=== PATIENT | female | born 1985 ===

== ENCOUNTER 2017-05-06 16:25 | Emergency (ER) | payer OTHER ==
--- NOTE | 2017-05-06 19:24 | C.PDOC ---
History Of Present Illness Patient is a 32 year old female who presents to the ED for evaluation of left shoulder pain for the past week and right breast pain since yesterday. Patient reports that her shoulder pain is exacerbated by deep breath and movement. 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 She denies shortness of breath or cough. She denies injury to right breast and denies lumps or discharge. 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) History/Exam Limitations: no limitations Onset/Duration Of Symptoms: Other (1 week) Current Symptoms Are (Timing): Still Present Quality: "Pain" Exacerbating Factors: Movement, Deep Breathing Alleviating Factors: None Past Medical History Reviewed: Historical Data, Nursing Documentation, Vital Signs Vital Signs: Last Vital Signs Temp 98.5 F 05/06/17 20:37 Pulse 70 05/06/17 20:37 Resp 20 05/06/17 20:37 BP 112/70 05/06/17 20:37 Pulse Ox 100 05/06/17 21:43 Family History: States: No Known Family Hx - Social History Hx Tobacco Use: No Hx Alcohol Use: No Hx Substance Use: No - Immunization History Hx Tetanus Toxoid Vaccination: No Hx Influenza Vaccination: No Hx Pneumococcal Vaccination: No Review Of Systems Except As Marked, All Systems Reviewed And Found Negative. Constitutional: Negative for: Fever, Other (heat/cold intolerance) ENT: Negative for: Ear Pain, Throat Pain Cardiovascular: Negative for: Chest Pain Respiratory: Negative for: Cough, Shortness of Breath Gastrointestinal: Negative for: Nausea, Vomiting, Abdominal Pain, Diarrhea Musculoskeletal: Positive for: Shoulder Pain, Other (Breast pain) Skin: Negative for: Rash Neurological: Negative for: Weakness, Numbness Physical Exam - Physical Exam Appears: Well, Non-toxic, No Acute Distress Skin: Normal Color, Warm, Dry Head: Atraumatic, Normacephalic Eye(s): bilateral: Normal Inspection, PERRL, EOMI Nose: Normal Oral Mucosa: Moist Throat: Normal Neck: Normal, Normal ROM, No Midline Cervical Tenderness, Supple Chest: Symmetrical, Other (right breast no discharge, no erythema, no palpable masses, mild tenderness to palpation ) Cardiovascular: Rhythm Regular Respiratory: Normal Breath Sounds Extremity: Normal ROM, Tenderness (left trapezius radiating into left shoulder ) , No Deformity Neurological/Psych: Oriented x3, Normal Speech ED Course And Treatment O2 Sat by Pulse Oximetry: 100 Medical Decision Making Medical Decision Making: Patient with reproducible upper back pain which radiates to her left arm suggestive of cervical radiculopathy. Patient also with subejctive complaints of right breast pain. We suggest follow up with mammography and will provide short trial of anti-inflammatories and muscle relaxers. Disposition - Disposition Referrals: [facility] [Outside] Disposition: HOME/ ROUTINE Disposition Time: 03:15 Condition: GOOD Prescriptions: Cyclobenzaprine [Cyclobenzaprine HCl] 10 mg PO TID #15 tab Naproxen [Naprosyn] 500 mg PO BID #20 tablet Forms: Gen Discharge Inst Latvian, [employer] (Wolof) Print Language: SLOVENIAN - Clinical Impression Clinical Impression: Cervical radiculopathy - Scribe Statement The provider has reviewed the documentation as recorded by the Scribe The provider has reviewed the documentation as recorded by the Scribe (Antonio Celeste) Provider Attestation: All medical record entries made by the Scribe were at my direction and personally dictated by me. I have reviewed the chart and agree that the record accurately reflects my personal performance of the history, physical exam, medical decision making, and the department course for this patient. I have also personally directed, reviewed, and agree with the discharge instructions and disposition.
[2017-05-06 20:38] VITALS: BP 112/70; PULSE 70; RESP 20; TEMP 98.5
[2017-05-06 21:43] VITALS: O2SAT 100
--- NOTE | 2017-05-07 12:21 | CARD ---
APPROVED REPORT EKG Measurement Heart [id number] <Conclusion> Normal sinus rhythm Normal ECG
== END 2017-05-06 20:38 | disposition home or self-care (01) ==
LOC: C.ER 16:25
DX: M54.12 Radiculopathy, cervical region (principal)

== ENCOUNTER 2018-03-08 21:20 | Emergency (ER) | payer OTHER ==
[2018-03-08 21:52] VITALS: BP 118/77; PULSE 84; RESP 18; TEMP 98.4; O2SAT 99
[2018-03-08 22:58] LABS: HCG,QUALITATIVE URINE NEGATIVE (NEGATIVE)
[2018-03-08 23:24] LABS: SQUAMOUS EPITHIAL 2 /hpf (0-5); URINE BILIRUBIN NEGATIVE (NEGATIVE); URINE BLOOD 2+ (NEGATIVE); URINE CLARITY Clear (Clear); URINE COLOR Yellow (YELLOW); URINE GLUCOSE (UA) NORMAL (Normal); URINE HYALINE CAST 0-2 /lpf (0-2); URINE LEUKOCYTE ESTERASE NEG Leu/uL (Negative); URINE PROTEIN NEGATIVE (NEGATIVE); URINE UROBILINOGEN NORMAL mg/dL (0.2-1.0)
--- NOTE | 2018-03-08 23:35 | C.PDOC ---
History Of Present Illness 33 year old female presents to the ER with a complaint of lower back pain that began earlier today and radiates to the right buttock and right thigh. Patient states she has had similar pain before in the past that usually self resolves. She took tylenol at home with no relief. Denies weakness, numbness, dysuria, hematuria, or incontinence. Time Seen by Provider: 03/08/18 21:52 Chief Complaint (Nursing): Back Pain History Per: Patient History/Exam Limitations: no limitations Onset/Duration Of Symptoms: Hrs Current Symptoms Are (Timing): Still Present Quality Of Discomfort: Unable To Describe Associated Symptoms: None Recent travel outside of the [place]: No Past Medical History Reviewed: Historical Data, Nursing Documentation, Vital Signs Vital Signs: Last Vital Signs Temp 98.4 F 03/08/18 21:43 Pulse 84 03/08/18 21:43 Resp 18 03/08/18 21:43 BP 118/77 03/08/18 21:43 Pulse Ox 99 03/08/18 21:43 Family History: States: Unknown Family Hx - Social History Hx Tobacco Use: No Hx Alcohol Use: No Hx Substance Use: No - Immunization History Hx Tetanus Toxoid Vaccination: No Hx Influenza Vaccination: No Hx Pneumococcal Vaccination: No Review Of Systems Genitourinary: Negative for: Dysuria, Incontinence, Hematuria Musculoskeletal: Positive for: Back Pain (Radiating down right buttock and right thigh) Neurological: Negative for: Weakness, Numbness Physical Exam - Physical Exam Appears: Non-toxic Skin: Normal Color, Warm, Dry Head: Atraumatic, Normacephalic Eye(s): bilateral: Normal Inspection Gastrointestinal/Abdominal: Soft, No Tenderness Back: No CVA Tenderness, No Vertebral Tenderness, Paraspinal Tenderness (Right lumbar), Straight Leg Raising (Positive to right at 40 degrees) Extremity: Normal ROM (x4) Neurological/Psych: Oriented x3, Normal Speech, Normal Motor, Normal Sensation Gait: Steady ED Course And Treatment O2 Sat by Pulse Oximetry: 99 (Room air) Pulse Ox Interpretation: Normal Progress Note: Urinalysis ordered, results were negative. Flexeril and toradol administered. Patient is resting comfortably in the ER in no acute distress, ambulatory with steady gait, vitals are stable, will discharge home with Rx and instructions to follow up with PMD. Disposition Counseled Patient/Family Regarding: Diagnosis, Need For Followup, Rx Given - Disposition Disposition: HOME/ ROUTINE Disposition Time: 23:32 Condition: STABLE Additional Instructions: Please follow up with PMD Take medication as directed Return to ER if worse Prescriptions: Ibuprofen [Motrin] 600 mg PO Q6H #20 tab Instructions: Sciatica (DC) Forms: [employer] (Rwandan) Print Language: UPPER SORBIAN - Clinical Impression Clinical Impression: Sciatica - PA / GREENS CUTTER / Resident Statement MD/DO has reviewed & agrees with the documentation as recorded. - Scribe Statement The provider has reviewed the documentation as recorded by the Scribromel Sparrow All medical record entries made by the Lisette were at my direction and personally dictated by me. I have reviewed the chart and agree that the record accurately reflects my personal performance of the history, physical exam, medical decision making, and the department course for this patient. I have also personally directed, reviewed, and agree with the discharge instructions and disposition.
== END 2018-03-08 23:39 | disposition home or self-care (01) ==
LOC: C.ER 21:20
DX: M54.30 Sciatica, unspecified side (principal)
CPT/HCPCS: 81001; 84703; 96372; 99283; J1885

== ENCOUNTER 2018-07-14 10:50 | Emergency (ER) | payer OTHER ==
[2018-07-14 10:59] VITALS: BMI 25.4
[2018-07-14 11:02] VITALS: TEMP 98.2
[2018-07-14] MEDS ORDERED: Aspirin 325 mg EC Tablets PO STA (11:35)
[2018-07-14] MEDS ORDERED: Sodium Chloride 0.9% 1,000 ML IV ONE (11:35)
[2018-07-14] MEDS ORDERED: Aspirin 325 mg EC Tablets PO ONE (11:44)
[2018-07-14] MEDS ORDERED: Sodium Chloride 0.9% 1,000 ML ONE (11:44)
[2018-07-14 11:51] LABS: BASO % 0.6 % (0.0-2.0); EOS % 0.6 % (0.0-4.0); HEMOGLOBIN 14.8 g/dL (11.0-16.0); LYMPH # 1.3 K/uL (1.0-4.3); LYMPH % 22.4 % (20.0-40.0); MEAN CELL VOLUME 90.1 fL (81.0-99.0); MEAN CORPUSCULAR HEMOGLOBIN 29.8 pg (27.0-31.0); MEAN CORPUSCULAR HGB CONC 33.1 g/dL (33.0-37.0); MEAN PLATELET VOLUME 11.2 fL (7.2-11.7); MONO # 0.3 K/uL (0.0-0.8); MONO % 5.8 % (0.0-10.0); NEUT # 3.9 K/uL (1.8-7.0); NEUT % 70.6 % (50.0-75.0); RBC 4.96 Mil/uL (3.80-5.20); RED CELL DISTRIBUTION WIDTH 13.3 % (11.5-14.5); WHITE BLOOD COUNT 5.6 K/uL (4.8-10.8)
[2018-07-14 12:08] LABS: ALB/GLOB RATIO 1.3 (1.0-2.1); ALBUMIN 4.3 g/dL (3.5-5.0); ALT/SGPT 19 U/L (9-52); AST/SGOT 23 U/L (14-36); BLOOD UREA NITROGEN 9 mg/dL (7-17); CALCIUM 9.5 mg/dl (8.6-10.4); GFR NON-AFRICAN AMERICAN > 60
--- NOTE | 2018-07-14 12:11 | RAD ---
HISTORY: chest pain COMPARISON: None available. TECHNIQUE: Chest PA and lateral, 2 views FINDINGS: LUNGS: No focal consolidation. Please note that chest x-ray has limited sensitivity for the detection of pulmonary masses. PLEURA: No significant pleural effusion identified. No definite pneumothorax . CARDIOVASCULAR: The cardiomediastinal silhouette appears within normal limits of size. No atherosclerotic calcification present. OSSEOUS STRUCTURES: No acute osseous abnormality identified. VISUALIZED UPPER ABDOMEN: Unremarkable. OTHER FINDINGS: None. IMPRESSION: No acute findings identified.
[2018-07-14 12:19] LABS: PROTHROMBIN TIME 11.3 SECONDS (9.7-12.2)
[2018-07-14 12:30] LABS: B-TYPE NATRIURETIC PEPTIDE 70.9 pg/mL (0-450)
--- NOTE | 2018-07-14 12:56 | C.PDOC ---
History Of Present Illness 33 y/o female w/o PMHx presents to the ED for evaluation of intermittent left sided chest pain associated with palpitations, " some dizziness" for 1 week. Today episodes became more frequent. Symptoms last for few minutes and are self- limited. Otherwise pt denies any recent illness, fever, chills, headache, vertigo, neck pain, SOB, dyspnea, diaphoresis, abd. pain, V/D, back pain, UTI sx, denies calf pain/swelling, No recent travel. She denies taking any oral contraceptive. Patient arrives in no acute distress, ambulatory into the ED, speaking in full sentences. Time Seen by Provider: 07/14/18 11:06 Chief Complaint (Nursing): Chest Pain History Per: Patient History/Exam Limitations: no limitations Onset/Duration Of Symptoms: Intermittent Episodes Current Symptoms Are (Timing): Still Present Past Medical History Reviewed: Historical Data, Nursing Documentation, Vital Signs Vital Signs: Last Vital Signs Temp 98.2 F 07/14/18 10:59 Pulse 75 07/14/18 10:59 Resp 18 07/14/18 11:34 BP 125/79 07/14/18 10:59 Pulse Ox 98 07/14/18 11:34 - Medical History PMH: No Chronic Diseases Family History: States: Unknown Family Hx - Social History Hx Tobacco Use: No Hx Alcohol Use: No Hx Substance Use: No - Immunization History Hx Tetanus Toxoid Vaccination: No Hx Influenza Vaccination: No Hx Pneumococcal Vaccination: No Review Of Systems Except As Marked, All Systems Reviewed And Found Negative. Constitutional: Negative for: Fever, Chills, Sweats Eyes: Negative for: Vision Change Cardiovascular: Positive for: Chest Pain, Palpitations Respiratory: Negative for: Cough, Shortness of Breath, Sputum Gastrointestinal: Negative for: Nausea, Vomiting, Abdominal Pain, Diarrhea Neurological: Positive for: Dizziness. Negative for: Weakness, Numbness, Headache Physical Exam - Physical Exam Appears: Well, Non-toxic, No Acute Distress Skin: Normal Color, Warm, No Rash Head: Normacephalic Eye(s): bilateral: PERRL Oral Mucosa: Moist Neck: Trachea Midline, Supple Cardiovascular: Rhythm Regular, No Murmur, No JVD, Other ((-) carotid bruits B/L) Respiratory: No Decreased Breath Sounds, No Rales, No Rhonchi, No Wheezing Gastrointestinal/Abdominal: Soft, No Tenderness, No Distention, No Guarding Extremity: Normal ROM, No Pedal Edema, No Calf Tenderness, No Deformity Pulses: Left Dorsalis Pedis: Normal, Right Dorsalis Pedis: Normal Neurological/Psych: Oriented x3, Normal Speech, Normal Motor, Normal Sensation, Normal Reflexes Gait: Steady ED Course And Treatment - Laboratory Results Result Diagrams: 07/14/18 11:43 07/14/18 11:43 Lab Results: PT 11.3 SECONDS (9.7-12.2) 07/14/18 11:43 INR 1.0 07/14/18 11:43 APTT 36.0 SECONDS (21-34) H 07/14/18 11:43 D-Dimer, Quantitative 203 ng/mlDDU (0-243) 07/14/18 11:43 Troponin I < 0.0120 ng/mL (0.00-0.120) 07/14/18 11:43 NT-Pro-B Natriuret Pep 70.9 pg/mL (0-450) 07/14/18 11:43 Total Bilirubin 0.3 mg/dL (0.2-1.3) 07/14/18 11:43 AST 23 U/L (14-36) 07/14/18 11:43 ALT 19 U/L (9-52) 07/14/18 11:43 Alkaline Phosphatase 47 U/L (38-126) 07/14/18 11:43 Total Protein 7.7 g/dL (6.3-8.3) 07/14/18 11:43 Albumin 4.3 g/dL (3.5-5.0) 07/14/18 11:43 Globulin 3.4 gm/dL (2.2-3.9) 07/14/18 11:43 Albumin/Globulin Ratio 1.3 (1.0-2.1) 07/14/18 11:43 Lab Interpretation: No Acute Changes Urine POC: Negative ECG: Interpreted By Me, Viewed By Me (and ED attending) ECG Rhythm: Sinus Rhythm Interpretation Of ECG: SR@70/min, short DC, NAD, no acute T wave or ST-T changes O2 Sat by Pulse Oximetry: 98 (RA) Pulse Ox Interpretation: Normal - Radiology CXR: Interpreted by Me, Read By Radiologist CXR Interpretation: Yes: No Acute Disease - Other Rad CXR X-Ray: Read By Radiologist Interpretation: Accession No. : [id number]. Patient Name / ID : ARLET FLANNERY / [id number]. Exam Date : 07/14/2018 11:46:05 ( Approved ). Study Comment : Sex / Age : F / 33Y. Creator : Nancy Lang MD. Dictator : Nancy Lang MD. Core Inspector : Case Operator : Nancy Lang MD. Approver2 : Report Date : 07/14/2018 12:07:44. My Comment : . HISTORY: chest pain. COMPARISON: None available. TECHNIQUE: Chest PA and lateral, 2 views. FINDINGS: LUNGS: No focal consolidation. Please note that chest x-ray has limited sensitivity for the detection of pulmonary masses. PLEURA: No significant pleural effusion identified. No definite pneumothorax . CARDIOVASCULAR: The cardiomediastinal silhouette appears within normal limits of size. No atherosclerotic calcification present. OSSEOUS STRUCTURES: No acute osseous abnormality identified. VISUALIZED UPPER ABDOMEN: Unremarkable. OTHER FINDINGS: None. IMPRESSION: No acute findings identified. Progress Note: Will obtain labs w/ cardiac enzymes, CXR, EKG. Patient given 325mg PO ASA and 1L IVF hydration. Pt was OBS in for 2 hours and remained tsable, remained asymptomatic. On re-eval, pt is afberile, hemodynamicaly stable. Non-toxic. PulseOx 99% RA. neck: Supple, (-) JVD, (-) carotid bruits. Lungs: CTA B/L, BS equal B/L. CVS: (+)S1S2, reg, (-) murmur. Abd: benign. neuorlogicaly intact. Blood work review and appears normal. Troponin I, CXR- no acute abormalitis. EKG: SR@70/min, NAD, short DC noted. Case review and discussed with ED attending DR. Passafaro, no acute findings at present time, discharge with outpt f/u recommned. results review and discussed with pt, advised on some EKG changes, ref. to f/u with PMD, cardiology in 1-2 days for re-eav. if any worsening or new changes- return to ED for re-eavl, pt understand and agrees with plan. Disposition Counseled Patient/Family Regarding: Studies Performed, Diagnosis, Need For Followup - Disposition Referrals: Nury Disla MD [Medical Doctor] - Disposition: HOME/ ROUTINE Disposition Time: 13:19 Condition: STABLE Additional Instructions: Encourage fluids Follow up with PMD in 1-2 days for re-evaluation Follow up with Cardiology in 1-2 days for re-evaluation Return to ED i any worsening or new changes Instructions: Chest Pain Forms: [employer] (Serbian) Print Language: GRENADIAN - Clinical Impression Clinical Impression: Chest pain - PA / PHYSICIAN ASST / Resident Statement MD/DO has reviewed & agrees with the documentation as recorded. - Scribe Statement The provider has reviewed the documentation as recorded by the Scribromel Iniguez All medical record entries made by the Scribe were at my direction and persona lly dictated by me. I have reviewed the chart and agree that the record accurately reflects my personal performance of the history, physical exam, medical decision making, and the department course for this patient. I have also personally directed, reviewed, and agree with the discharge instructions and disposition.
[2018-07-14 13:27] VITALS: BP 127/81; PULSE 64; RESP 14
[2018-07-14 13:30] LABS: HCG,QUALITATIVE URINE NEGATIVE (NEGATIVE)
[2018-07-14 13:31] LABS: SQUAMOUS EPITHIAL 1 /hpf (0-5); URINE BILIRUBIN NEGATIVE (NEGATIVE); URINE BLOOD NEGATIVE (NEGATIVE); URINE CLARITY Clear (Clear); URINE COLOR Straw (YELLOW); URINE GLUCOSE (UA) NORMAL (Normal); URINE LEUKOCYTE ESTERASE NEG Leu/uL (Negative); URINE PROTEIN NEGATIVE (NEGATIVE); URINE UROBILINOGEN NORMAL mg/dL (0.2-1.0)
[2018-07-14 13:50] VITALS: O2SAT 98
[2018-07-14 13:56] LABS: BARBITURATES, UR NEGATIVE (NEGATIVE); OPIATES, UR NEGATIVE (NEGATIVE); PHENCYCLIDINE, UR NEGATIVE (NEGATIVE)
[2018-07-14 14:20] LABS: BENZODIAZEPINES, UR POSITIVE (NEGATIVE)
--- NOTE | 2018-07-15 12:44 | CARD ---
APPROVED REPORT Date of service: 07/14/2018 EKG Measurement Heart [id number] OK 110P46 [id number] <Conclusion> Sinus rhythm with short OK Otherwise normal ECG
== END 2018-07-14 14:25 | disposition home or self-care (01) ==
LOC: C.ER 10:50
DX: R07.9 Chest pain, unspecified (principal)
CPT/HCPCS: 71046; 80053; 80324; 80345; 80346; 80349; 80353; 80358; 80361; 81001; 83880; 83992; 84484; 84703; 85025; 85378; 85610; 85730; 93005; 96361; 96374; 99285; J1885; J7030